=== PATIENT | female | born 1965 | race African-American/Black ===

== ENCOUNTER 2018-12-15 10:22 | Emergency (ER) | payer OTHER ==
[~2018-12-15] VITALS: Ht 170.2 cm; Wt 73.5 kg
[2018-12-15] MEDS ORDERED: PEPCID40 MG PO (10:47)
[2018-12-15] MEDS ORDERED: PREDNISONE 20 M20 MG PO (10:47)
[2018-12-15 11:00] VITALS: BP 157/98
== END 2018-12-15 11:01 | disposition home or self-care (01) ==
LOC: ER 10:22
DX: L23.9 Allergic contact dermatitis, unspecified cause (principal); L29.9 Pruritus, unspecified; F17.210 Nicotine dependence, cigarettes, uncomplicated